=== PATIENT | female | born 1990 | race African-American/Black ===

== ENCOUNTER 2024-10-24 08:20 | Day surgery (SDC) | payer OTHER ==
[2024-10-24] MEDS ORDERED: Acetaminophen 500 MG TAB ONE (08:31)
[2024-10-24] MEDS: Acetaminophen 500 MG TAB PO SCH (08:32)
[2024-10-24 09:11] VITALS: TEMP 98.5
[2024-10-24] MEDS: Iron Sucrose Complex 500 MG in Sodium Chloride 0.9% 250 ML 250 ML IVPB SCH (09:13)
[2024-10-24 13:58] VITALS: BP 112/65
== END 2024-10-24 14:20 | disposition home or self-care (01) ==
LOC: ONC/OP 08:20
PROVIDERS: ATTEND Family Medicine
DX: O99.013 Anemia complicating pregnancy, third trimester (principal); O99.213 Obesity complicating pregnancy, third trimester; E66.01 Morbid (severe) obesity due to excess calories; O34.219 Maternal care for unspecified type scar from previous cesarean delivery; O99.513 Diseases of the respiratory system complicating pregnancy, third trimester; J45.909 Unspecified asthma, uncomplicated; Z3A.00 Weeks of gestation of pregnancy not specified; Z90.49 Acquired absence of other specified parts of digestive tract; Z88.5 Allergy status to narcotic agent; Z79.51 Long term (current) use of inhaled steroids; Z79.899 Other long term (current) drug therapy
CPT/HCPCS: 96365; 96366; J1756; J7050